=== PATIENT | male | born 1995 | race Caucasian/White ===

== ENCOUNTER 2017-10-31 22:43 | Emergency (ER) | payer MEDICAID ==
[~2017-10-31] VITALS: Ht 180.3 cm; Wt 94.1 kg
[~2017-10-31 22:43] MED LIST: CLIN-80 PO
[2017-11-01] MEDS ORDERED: IBUP-1984 PO (05:05)
[2017-11-01 05:52] VITALS: BP 147/88
== END 2017-11-01 05:55 | disposition home or self-care (01) ==
LOC: ER 22:43
DX: R07.89 Other chest pain (principal); F17.200 Nicotine dependence, unspecified, uncomplicated; Z98.890 Other specified postprocedural states
CPT/HCPCS: 71045; 93005; 99281; 99283

== ENCOUNTER 2017-12-19 17:24 | Emergency (ER) | payer MEDICAID ==
[~2017-12-19] VITALS: Ht 610.5 cm; Wt 124.6 kg
[~2017-12-19 17:24] MED LIST changes: -CLIN-80 PO; +CLIN300C85 PO
[2017-12-19 19:02] VITALS: BP 135/89
== END 2017-12-19 19:03 | disposition home or self-care (01) ==
LOC: ER 17:25
DX: M79.641 Pain in right hand (principal); Z98.890 Other specified postprocedural states; W22.8XXA Striking against or struck by other objects, initial encounter; Y93.55 Activity, bike riding; Y92.413 State road as the place of occurrence of the external cause; Y99.9 Unspecified external cause status
CPT/HCPCS: 29125; 73130; 99284

== ENCOUNTER 2018-04-09 00:23 | Emergency (ER) | payer MEDICAID ==
[~2018-04-09] VITALS: Ht 180.3 cm; Wt 119.0 kg
[2018-04-09] MEDS ORDERED: HYDROmorphone 1 mg/ml syringe IM ONE (01:50)
[2018-04-09] MEDS ORDERED: HYDR-3965 PO (03:14)
[2018-04-09] MEDS ORDERED: IBUP-1984 PO (03:16)
[2018-04-09 03:25] VITALS: BP 136/79
== END 2018-04-09 03:28 | disposition home or self-care (01) ==
LOC: ER 00:24
DX: S60.222A Contusion of left hand, initial encounter (principal); W22.8XXA Striking against or struck by other objects, initial encounter; Y93.89 Activity, other specified; Y92.89 Other specified places as the place of occurrence of the external cause; Y99.9 Unspecified external cause status
CPT/HCPCS: 73090; 73110; 73130; 96372; 99284; A4565; J1170

== ENCOUNTER 2019-02-12 20:30 | Emergency (ER) | payer MEDICAID ==
[~2019-02-12] VITALS: Ht 182.9 cm; Wt 133.0 kg
[~2019-02-12 20:30] MED LIST changes: +CLIN-96 PO; -CLIN300C85 PO; +CYCL-1 PO; +ONDA4TAB6 PO
[2019-02-12] MEDS ORDERED: HYDROcodone/acetaminophen 10/325mg tab PO STA (20:36)
--- NOTE | 2019-02-12 20:45 | NUR ---
XRAY TO SEE PT
[2019-02-12] MEDS ORDERED: ibuprofen 200mg tablet PO ONE (21:00)
[2019-02-12] MEDS ORDERED: HYDROcodone/acetaminophen 10/325mg tab PO ONE (21:00)
[2019-02-12] MEDS ORDERED: HYDR-3965 PO (21:15)
[2019-02-12 21:30] VITALS: BP 132/108
--- NOTE | 2019-02-12 21:45 | NUR ---
DR LARIOS TO ASSESS SLING AND SOFT IMMOBILIZER
== END 2019-02-12 21:46 | disposition home or self-care (01) ==
LOC: ER 20:30
DX: S50.02XA Contusion of left elbow, initial encounter (principal); F17.200 Nicotine dependence, unspecified, uncomplicated; F12.90 Cannabis use, unspecified, uncomplicated; Z98.890 Other specified postprocedural states; Z79.2 Long term (current) use of antibiotics; Z79.899 Other long term (current) drug therapy; W18.39XA Other fall on same level, initial encounter; Y93.89 Activity, other specified; Y92.89 Other specified places as the place of occurrence of the external cause; Y99.8 Other external cause status
CPT/HCPCS: 29105; 29505; 73080; 99283

== ENCOUNTER 2019-03-19 15:08 | Emergency (ER) | payer MEDICAID ==
[~2019-03-19] VITALS: Ht 182.9 cm; Wt 132.0 kg
[2019-03-19 15:34] VITALS: BP 158/95
[2019-03-19] MEDS ORDERED: NAPR-56 PO (15:59)
[2019-03-19] MEDS ORDERED: PENI250T2 PO (15:59)
[2019-03-19] MEDS ORDERED: HYDROcodone/acetaminophen 5mg/325mg tablet PO ONE (16:00)
== END 2019-03-19 16:20 | disposition home or self-care (01) ==
LOC: ER 15:08
DX: K02.9 Dental caries, unspecified (principal); K00.7 Teething syndrome; F12.90 Cannabis use, unspecified, uncomplicated; Z98.890 Other specified postprocedural states; Z79.899 Other long term (current) drug therapy
CPT/HCPCS: 99283

== ENCOUNTER 2019-04-02 22:43 | Emergency (ER) | payer MEDICAID ==
[~2019-04-02] VITALS: Ht 180.3 cm; Wt 134.0 kg
[~2019-04-02 22:43] MED LIST changes: +NAPR-56 PO
[2019-04-02 22:44] VITALS: BP 143/115
[2019-04-02] MEDS ORDERED: dexamethasone sod phosphate 10mg/ml inj IM STA (23:02)
[2019-04-02] MEDS ORDERED: diphenhydrAMINE 25mg capsule PO ONE (23:05)
[2019-04-03] MEDS ORDERED: PRED20TA PO (14:52)
== END 2019-04-02 23:18 | disposition home or self-care (01) ==
LOC: ER 22:43
DX: L50.9 Urticaria, unspecified (principal); F12.90 Cannabis use, unspecified, uncomplicated; Z98.890 Other specified postprocedural states; Z79.2 Long term (current) use of antibiotics; Z79.899 Other long term (current) drug therapy
CPT/HCPCS: 96372; 99283; J1100; Q0163

== ENCOUNTER 2019-04-03 14:25 | Emergency (ER) | payer MEDICAID ==
[~2019-04-03] VITALS: Ht 182.9 cm; Wt 134.0 kg
[2019-04-03 14:32] VITALS: BP 111/93
[2019-04-03] MEDS ORDERED: PRED20TA PO (14:52)
== END 2019-04-03 15:02 | disposition home or self-care (01) ==
LOC: ER 14:25
DX: L50.8 Other urticaria (principal); F12.90 Cannabis use, unspecified, uncomplicated; Z98.890 Other specified postprocedural states; Z79.899 Other long term (current) drug therapy
CPT/HCPCS: 99283

== ENCOUNTER 2019-05-08 19:08 | Emergency (ER) | payer MEDICAID, OTHER ==
[~2019-05-08] VITALS: Ht 182.9 cm; Wt 129.6 kg
[~2019-05-08 19:08] MED LIST changes: -NAPR-56 PO
--- NOTE | 2019-05-08 19:47 | NUR ---
pt is 23 YO male c/o RUQ abd pain x3days, referred to ER by PMD, baby black bite on 04/02/19, +nausea, vomiting, pt is waiting for referral to "four specialists", pt was hospitalized at [facility] for 5 days
[2019-05-08 20:21] LABS: BASOPHILS # (AUTO) 0.1 X10'3 (0-0.2); BASOPHILS % (AUTO) 1.1 % (0-1); EOSINOPHILS # (AUTO) 0.1 X10'3 (0-0.9); EOSINOPHILS % (AUTO) 0.7 % (0-6); HEMATOCRIT 43.8 % (42.0-52.0); HEMOGLOBIN 14.9 g/dl (14.0-17.9); LYMPHOCYTES # (AUTO) 3.7 X10'3 (1.1-4.8); LYMPHOCYTES % (AUTO) 32.6 % (21-51); MEAN CORPUSCULAR HEMOGLOBIN 29.1 PG (27.0-31.0); MEAN CORPUSCULAR VOLUME 85.6 FL (78-98); MEAN PLATELET VOLUME 6.8 FL (7.4-10.4); MONOCYTES % (AUTO) 8.5 % (2-12); NEUTROPHILS # (AUTO) 6.5 X10'3 (1.8-7.7); NEUTROPHILS % (AUTO) 57.1 % (42-75); PLATELET COUNT 408 X10'3 (140-440); RED BLOOD COUNT 5.12 X10'6 (4.70-6.10); RED CELL DISTRIBUTION WIDTH 13.7 % (11.5-14.5); WHITE BLOOD COUNT 11.4 X10'3 (4.5-11.0)
[2019-05-08 20:37] LABS: ALANINE AMINOTRANSFERASE 44 U/L (12-78); ALBUMIN 3.9 G/DL (3.4-5.0); ALBUMIN/GLOBULIN RATIO 0.8 (1.1-1.5); ALKALINE PHOSPHATASE 75 IU/L (46-116); ANION GAP 9 (8-16); ASPARTATE AMINO TRANSFERASE 19 U/L (10-37); BILIRUBIN,TOTAL 0.2 MG/DL (0.1-1.0); BLOOD UREA NITROGEN 7 MG/DL (7-18); BUN/CREATININE RATIO 8.6 (5.4-32.0); CALCIUM 9.2 MG/DL (8.5-10.1); CHLORIDE 104 MMOL/L (99-107); CREATININE 0.81 MG/DL (0.60-1.10); GLUCOSE 92 MG/DL (70-104); LIPASE 127 U/L (73-393); POTASSIUM 3.8 MMOL/L (3.5-5.1); SODIUM 142 MMOL/L (135-145); TOTAL CARBON DIOXIDE 28.7 MMOL/L (24-32); TOTAL PROTEIN 8.7 G/DL (6.4-8.2); eGFR > 90 ML/MIN
[2019-05-08] MEDS ORDERED: metoclopramide 5 mg/ml inj IV ONE (20:50)
[2019-05-08] MEDS ORDERED: normal saline 1000ML IV soln IVB ONE ×2 (20:50)
[2019-05-08] MEDS ORDERED: diphenhydrAMINE 50 mg/ml inj IV ONE (20:50)
[2019-05-08] MEDS ORDERED: magnesium 2GM in 50ml NS 50 ML IV ONE (20:50)
[2019-05-08] MEDS ORDERED: LORazepam 2 mg/ml vial IV ONE (20:50)
[2019-05-08] MEDS ORDERED: ketorolac trometh. 30mg/ml inj. IV ONE (20:50)
--- NOTE | 2019-05-08 21:29 | NUR ---
pt is resting quietly on ned, at bedside, 1st liter NS infusing w/o
[2019-05-09 00:13] VITALS: BP 132/70
== END 2019-05-09 00:14 | disposition home or self-care (01) ==
LOC: ER 19:09
DX: R10.11 Right upper quadrant pain (principal); R11.2 Nausea with vomiting, unspecified; F17.210 Nicotine dependence, cigarettes, uncomplicated; F12.90 Cannabis use, unspecified, uncomplicated; Z98.890 Other specified postprocedural states
CPT/HCPCS: 36415; 74176; 80053; 83690; 85025; 85610; 96365; 96366; 96375; 99284; J1200; J1885; J2060; J2765; J3475; J7030

== ENCOUNTER 2020-03-07 22:07 | Emergency (ER) | payer MEDICAID, OTHER ==
[~2020-03-07] VITALS: Ht 180.3 cm; Wt 133.0 kg
[~2020-03-07 22:07] MED LIST changes: -CLIN-96 PO; +CLIN-97 PO
[2020-03-07] MEDS ORDERED: HYDROcodone/acetaminophen 10/325mg tab PO ONE (22:20)
[2020-03-07] MEDS ORDERED: HYDR-4383 PO (22:23)
[2020-03-07] MEDS ORDERED: PENI250T2 PO (22:23)
[2020-03-07] MEDS ORDERED: NAPR-56 PO (22:23)
[2020-03-07 22:33] VITALS: BP 150/85
== END 2020-03-07 22:34 | disposition home or self-care (01) ==
LOC: ER 22:07
DX: K08.89 Other specified disorders of teeth and supporting structures (principal); F12.90 Cannabis use, unspecified, uncomplicated; Z98.890 Other specified postprocedural states; Z79.899 Other long term (current) drug therapy
CPT/HCPCS: 99283

== ENCOUNTER 2020-04-27 12:01 | Emergency (ER) | payer MEDICAID ==
[~2020-04-27] VITALS: Ht 180.3 cm; Wt 140.0 kg
[~2020-04-27 12:01] MED LIST changes: +HYDR-4383 PO
[2020-04-27 12:04] VITALS: BP 144/81
== END 2020-04-27 13:02 | disposition home or self-care (01) ==
LOC: ER 12:01
DX: H57.89 Other specified disorders of eye and adnexa (principal); H57.11 Ocular pain, right eye; H53.8 Other visual disturbances; F12.90 Cannabis use, unspecified, uncomplicated; Z98.890 Other specified postprocedural states; Z79.899 Other long term (current) drug therapy
CPT/HCPCS: 99283

== ENCOUNTER 2020-11-01 23:07 | Emergency (ER) | payer MEDICAID ==
[~2020-11-01] VITALS: Ht 180.3 cm; Wt 140.0 kg
[2020-11-01 23:09] VITALS: BP 173/104
[2020-11-02] MEDS ORDERED: ONDA4TAB6 PO (00:02)
[2020-11-02] MEDS ORDERED: AMOX500C2 PO (00:02)
[2020-11-02] MEDS ORDERED: HYDR-3965 PO (00:02)
[2020-11-02] MEDS ORDERED: METH4TAB81 PO (00:02)
== END 2020-11-02 00:16 | disposition home or self-care (01) ==
LOC: ER 23:07
DX: K04.7 Periapical abscess without sinus (principal); K02.9 Dental caries, unspecified; K08.89 Other specified disorders of teeth and supporting structures; F12.90 Cannabis use, unspecified, uncomplicated; Z98.890 Other specified postprocedural states; Z79.2 Long term (current) use of antibiotics; Z79.899 Other long term (current) drug therapy
CPT/HCPCS: 99283

== ENCOUNTER 2021-08-25 12:42 | Emergency (ER) | payer MEDICAID ==
[~2021-08-25] VITALS: Ht 180.3 cm; Wt 137.3 kg
[~2021-08-25 12:42] MED LIST changes: +METH4TAB81 PO
[2021-08-25 13:29] LABS: BASOPHILS # (AUTO) 0.1 X10'3 (0-0.2); BASOPHILS % (AUTO) 1.1 % (0-1); EOSINOPHILS # (AUTO) 0.1 X10'3 (0-0.9); EOSINOPHILS % (AUTO) 0.9 % (0-6); HEMATOCRIT 47.4 % (42.0-52.0); HEMOGLOBIN 16.3 g/dl (14.0-17.9); LYMPHOCYTES # (AUTO) 3.4 X10'3 (1.1-4.8); LYMPHOCYTES % (AUTO) 28.8 % (21-51); MEAN CORPUSCULAR HEMOGLOBIN 29.7 PG (27.0-31.0); MEAN CORPUSCULAR HGB CONC 34.4 g/dL (33.0-36.5); MEAN CORPUSCULAR VOLUME 86.3 FL (78-98); MEAN PLATELET VOLUME 7.7 FL (7.4-10.4); MONOCYTES # (AUTO) 0.8 X10'3 (0-0.9); NEUTROPHILS # (AUTO) 7.3 X10'3 (1.8-7.7); NEUTROPHILS % (AUTO) 62.2 % (42-75); PLATELET COUNT 349 X10'3 (140-440); RED BLOOD COUNT 5.49 X10'6 (4.70-6.10); RED CELL DISTRIBUTION WIDTH 13.5 % (11.5-14.5); WHITE BLOOD COUNT 11.7 X10'3 (4.5-11.0)
[2021-08-25 13:43] LABS: ALANINE AMINOTRANSFERASE 117 U/L (12-78); ALBUMIN/GLOBULIN RATIO 0.9 (1.1-1.5); ALKALINE PHOSPHATASE 75 IU/L (46-116); ANION GAP 8 (8-16); ASPARTATE AMINO TRANSFERASE 45 U/L (10-37); BILIRUBIN,TOTAL 0.4 MG/DL (0.1-1.0); BLOOD UREA NITROGEN 11 MG/DL (7-18); BUN/CREATININE RATIO 13.8 (5.4-32.0); CHLORIDE 106 MMOL/L (99-107); GLUCOSE 168 MG/DL (70-104); LIPASE 134 U/L (73-393); POTASSIUM 3.6 MMOL/L (3.5-5.1); SODIUM 140 MMOL/L (135-145); TOTAL PROTEIN 8.5 G/DL (6.4-8.2); eGFR > 90 ML/MIN
[2021-08-25 13:54] LABS: CLARITY,URINE CLEAR (Clear); COLOR,URINE YELLOW (Yellow); GLUCOSE, URINE NEGATIVE (Neg); KETONES,URINE NEGATIVE (Neg); LEUKOCYTE ESTERASE ,URINE NEGATIVE (Neg); NITRITES, URINE NEGATIVE (Neg); OCCULT BLOOD,URINE NEGATIVE (Neg); PH,URINE 6.5 (4.8-8.0); PROTEIN,URINE NEGATIVE (Neg); UROBILINOGEN,URINE 0.2 E.U/dL (0.2-1.0)
[2021-08-25 13:59] LABS: UA COLLECTION TYPE CLN CATCH MIDSTREAM
[2021-08-25 15:46] VITALS: BP 151/104
--- NOTE | 2021-08-25 15:51 | NUR ---
Pt given and understands d/c instructions. Ambulatory with a steady gait.
== END 2021-08-25 15:50 | disposition home or self-care (01) ==
LOC: ER 12:43
DX: R10.31 Right lower quadrant pain (principal); R10.11 Right upper quadrant pain; K76.0 Fatty (change of) liver, not elsewhere classified; R11.10 Vomiting, unspecified; R19.7 Diarrhea, unspecified; F17.200 Nicotine dependence, unspecified, uncomplicated; F12.90 Cannabis use, unspecified, uncomplicated; Z98.890 Other specified postprocedural states; Z88.1 Allergy status to other antibiotic agents; Z79.2 Long term (current) use of antibiotics; Z79.899 Other long term (current) drug therapy
CPT/HCPCS: 36415; 76700; 80053; 81003; 83690; 85025; 99284

== ENCOUNTER 2022-03-23 13:07 | Emergency (ER) | payer MEDICAID ==
[~2022-03-23] VITALS: Ht 180.3 cm; Wt 140.9 kg
[2022-03-23] MEDS ORDERED: HYDROcodone/acetaminophen 10/325mg tab PO ONE (13:25)
[2022-03-23] MEDS ORDERED: cyclobenzaprine 10mg tablet PO ONE (13:25)
--- NOTE | 2022-03-23 13:26 | NUR ---
nighat saw pt in triage, gave orders.
[2022-03-23] MEDS ORDERED: gabapentin 300mg capsule PO ONE (16:40)
[2022-03-23] MEDS ORDERED: morphine 4 MG/ML inj SYRINge IM ONE ×2 (17:55→22:45)
--- NOTE | 2022-03-23 18:54 | NUR ---
TO XRAY VIA WHEELCHAIR AT THIS TIME.
[2022-03-23 19:34] VITALS: BP 141/91
[2022-03-23] MEDS ORDERED: morphine 4 MG/ML inj SYRINge IV ONE (20:25)
[2022-03-23] MEDS ORDERED: HYDR-3965 PO (22:42)
== END 2022-03-23 23:04 | disposition home or self-care (01) ==
LOC: ER 13:08
DX: M43.16 Spondylolisthesis, lumbar region (principal); F12.10 Cannabis abuse, uncomplicated; Z88.1 Allergy status to other antibiotic agents; Z79.899 Other long term (current) drug therapy
CPT/HCPCS: 72110; 72128; 72131; 96372; 96374; 99285; J2270; 96375

== ENCOUNTER 2022-08-28 17:57 | Emergency (ER) | payer MEDICAID ==
[~2022-08-28] VITALS: Ht 180.3 cm; Wt 143.2 kg
[2022-08-28 17:59] VITALS: BP 151/104
== END 2022-08-29 01:25 | disposition left against medical advice (07) ==
LOC: ER 17:58
DX: G43.909 Migraine, unspecified, not intractable, without status migrainosus (principal); Z53.21 Procedure and treatment not carried out due to patient leaving prior to being seen by health care provider

== ENCOUNTER 2023-07-27 13:43 | Emergency (ER) | payer MEDICAID ==
[~2023-07-27] VITALS: Ht 180.3 cm; Wt 127.6 kg
[2023-07-27] MEDS ORDERED: amox tr/potassium clavulanate 875/125mg TAB PO ONE (14:10)
[2023-07-27] MEDS ORDERED: HYDROcodone/acetaminophen 10/325mg tab PO ONE (14:15)
[2023-07-27] MEDS ORDERED: TRAM50TA2 PO (14:31)
[2023-07-27] MEDS ORDERED: AMOX-580 PO (14:31)
[2023-07-27 14:38] VITALS: BP 143/86; PULSE 73; RESP 16; TEMP 99; O2SAT 97
== END 2023-07-27 14:44 | disposition home or self-care (01) ==
LOC: ER 13:43
DX: K04.7 Periapical abscess without sinus (principal); F12.10 Cannabis abuse, uncomplicated; E03.9 Hypothyroidism, unspecified; Z79.899 Other long term (current) drug therapy
CPT/HCPCS: 99283

== ENCOUNTER 2023-11-26 09:55 | Emergency (ER) | payer MEDICAID ==
[~2023-11-26] VITALS: Ht 180.3 cm; Wt 125.0 kg
[2023-11-26 10:03] VITALS: TEMP 98.1
[2023-11-26] MEDS ORDERED: ketorolac trometh. 30mg/ml inj. IV ONE (11:20)
[2023-11-26] MEDS: ketorolac tromethamine 15mg/ml inj. IV ONE (11:39)
[2023-11-26] MEDS ORDERED: HYDR-3965 PO (11:45)
[2023-11-26 12:02] VITALS: BP 142/93; PULSE 70; RESP 18; O2SAT 99
== END 2023-11-26 11:55 | disposition home or self-care (01) ==
LOC: ER 09:55
DX: S00.83XA Contusion of other part of head, initial encounter (principal); Z88.1 Allergy status to other antibiotic agents; Z79.2 Long term (current) use of antibiotics; Z79.899 Other long term (current) drug therapy; F12.90 Cannabis use, unspecified, uncomplicated; Y08.89XA Assault by other specified means, initial encounter; Y93.89 Activity, other specified; Y92.89 Other specified places as the place of occurrence of the external cause; Y99.8 Other external cause status
CPT/HCPCS: 70450; 70486; 96374; 99285; J1885

== ENCOUNTER 2023-12-22 10:19 | Emergency (ER) | payer MEDICAID ==
[~2023-12-22] VITALS: Ht 180.3 cm; Wt 125.2 kg
[~2023-12-22 10:19] MED LIST changes: +HYDR-3965 PO
[2023-12-22 10:33] VITALS: BP 150/90; PULSE 68; RESP 16; TEMP 97.8; O2SAT 99
[2023-12-22] MEDS ORDERED: AMOX500C2 PO (12:15)
[2023-12-22] MEDS: amoxicillin 250mg capsule PO ONE (12:59)
[2023-12-22] MEDS: ibuprofen tablet 400 MG TABLET PO ONE (12:59)
== END 2023-12-22 13:02 | disposition home or self-care (01) ==
LOC: ER 10:20
DX: K04.7 Periapical abscess without sinus (principal); K02.9 Dental caries, unspecified; F12.90 Cannabis use, unspecified, uncomplicated; Z88.1 Allergy status to other antibiotic agents
CPT/HCPCS: 99283

== ENCOUNTER 2024-03-10 08:49 | Emergency (ER) | payer MEDICAID ==
[~2024-03-10] VITALS: Ht 177.8 cm; Wt 106.5 kg
[~2024-03-10 08:49] MED LIST changes: -HYDR-3965 PO
[2024-03-10 09:00] VITALS: TEMP 97.1
[2024-03-10 10:45] VITALS: BP 132/103; PULSE 72; RESP 16; O2SAT 97
== END 2024-03-10 10:59 | disposition home or self-care (01) ==
LOC: ER 08:50
DX: S93.601A Unspecified sprain of right foot, initial encounter (principal); F12.90 Cannabis use, unspecified, uncomplicated; Z88.1 Allergy status to other antibiotic agents; Z79.2 Long term (current) use of antibiotics; Z79.899 Other long term (current) drug therapy; X58.XXXA Exposure to other specified factors, initial encounter; Y93.89 Activity, other specified; Y92.89 Other specified places as the place of occurrence of the external cause; Y99.8 Other external cause status
CPT/HCPCS: 73610; 73630; 99284; A6449

== ENCOUNTER 2024-04-14 18:12 | Emergency (ER) | payer MEDICAID ==
[~2024-04-14] VITALS: Ht 177.8 cm; Wt 131.8 kg
[2024-04-14 18:50] LABS: BASOPHILS # (AUTO) 0.1 X10'3 (0-0.2); BASOPHILS % (AUTO) 1.3 % (0-1); EOSINOPHILS # (AUTO) 0.1 X10'3 (0-0.9); EOSINOPHILS % (AUTO) 0.8 % (0-6); HEMATOCRIT 45.9 % (42.0-52.0); HEMOGLOBIN 15.5 g/dl (14.0-17.9); LYMPHOCYTES # (AUTO) 4.5 X10'3 (1.1-4.8); LYMPHOCYTES % (AUTO) 40.6 % (21-51); MEAN CORPUSCULAR HEMOGLOBIN 28.7 PG (27.0-31.0); MEAN CORPUSCULAR HGB CONC 33.8 g/dL (33.0-36.5); MEAN CORPUSCULAR VOLUME 84.9 FL (78-98); MONOCYTES # (AUTO) 0.7 X10'3 (0-0.9); MONOCYTES % (AUTO) 6.5 % (2-12); NEUTROPHILS # (AUTO) 5.7 X10'3 (1.8-7.7); NEUTROPHILS % (AUTO) 50.8 % (42-75); PLATELET COUNT 371 X10'3 (140-440); RED BLOOD COUNT 5.41 X10'6 (4.70-6.10); RED CELL DISTRIBUTION WIDTH 13.5 % (11.5-14.5); WHITE BLOOD COUNT 11.1 X10'3 (4.5-11.0)
[2024-04-14 18:59] LABS: ALBUMIN 4.2 G/DL (3.4-5.0); ANION GAP 8 (8-16); BLOOD UREA NITROGEN 13 MG/DL (7-18); BUN/CREATININE RATIO 15.1 (10.0-20.0); CALCIUM 9.2 MG/DL (8.5-10.1); CHLORIDE 101 MMOL/L (99-107); CREATININE 0.86 MG/DL (0.60-1.10); GLUCOSE 117 MG/DL (70-104); POTASSIUM 3.8 MMOL/L (3.5-5.1); SODIUM 138 MMOL/L (135-145); TOTAL CARBON DIOXIDE 28.6 MMOL/L (24-32); eCRCL 136 ML/MIN; eGFR > 90 ML/MIN
[2024-04-14] MEDS: ketorolac trometh 15mg/ml vial 15 MG/ML ML IV ONE (19:02)
[2024-04-14] MEDS: ondansetron/PF 4mg/2ml inj IV ONE (19:03)
[2024-04-14] MEDS: diphenhydrAMINE 50 mg/ml inj IV ONE (19:03)
[2024-04-14] MEDS: clindamycin-Cleocin 900mg/D5W 50 ML IV ONE (19:06)
[2024-04-14] MEDS ORDERED: HYDR-3972 PO (19:56)
[2024-04-14] MEDS ORDERED: CLIN-97 PO (19:56)
[2024-04-14] MEDS: HYDROmorphone 1 mg/ml syringe IV ONE (19:58)
[2024-04-14 20:20] VITALS: BP 140/83; PULSE 53; RESP 16; TEMP 98; O2SAT 96
== END 2024-04-14 20:23 | disposition home or self-care (01) ==
LOC: ER 18:13
DX: K08.89 Other specified disorders of teeth and supporting structures (principal); F12.90 Cannabis use, unspecified, uncomplicated; Z88.1 Allergy status to other antibiotic agents; Z79.2 Long term (current) use of antibiotics; Z79.52 Long term (current) use of systemic steroids; Z98.890 Other specified postprocedural states
CPT/HCPCS: 36415; 80048; 83605; 84145; 85025; 87040; 96365; 96375; 99284; J1170; J1200; J1885; J2405; J3490